=== PATIENT | male | born 1990 | race Caucasian/White ===

== ENCOUNTER 2019-04-08 11:17 | Emergency (ER) | payer SELFPAY ==
[~2019-04-08] VITALS: Ht 160 cm; Wt 82.0 kg
[2019-04-08 11:28] VITALS: BP 176/99
== END 2019-04-08 11:59 | disposition home or self-care (01) ==
LOC: ER 11:17
DX: S51.811A Laceration without foreign body of right forearm, initial encounter (principal); W25.XXXA Contact with sharp glass, initial encounter; Y93.89 Activity, other specified; Y92.89 Other specified places as the place of occurrence of the external cause
CPT/HCPCS: 99283

== ENCOUNTER 2019-04-18 11:33 | Emergency (ER) | payer OTHER ==
[~2019-04-18] VITALS: Ht 160 cm; Wt 82.0 kg
[2019-04-18 13:28] VITALS: BP 154/89
== END 2019-04-18 13:28 | disposition home or self-care (01) ==
LOC: ER 11:57
DX: M25.561 Pain in right knee (principal); W10.8XXA Fall (on) (from) other stairs and steps, initial encounter; Y93.89 Activity, other specified; Y92.018 Other place in single-family (private) house as the place of occurrence of the external cause
CPT/HCPCS: 73562; 99283

== ENCOUNTER 2021-06-17 18:11 | Inpatient (IN) | payer SELFPAY ==
[~2021-06-17] VITALS: Ht 160 cm; Wt 80.9 kg
[2021-06-17 12:20] VITALS: BP 124/72
[2021-06-17] MEDS ORDERED: MORPHINE SULFATE 4 MG/ML CPJ (NOT FOR IM USE) IV STA (18:53)
[2021-06-17] MEDS ORDERED: ONDANSETRON HCL 4MG/2ML INJ IV STA (18:53)
[2021-06-17] MEDS ORDERED: PIPERACILLIN/TAZ 3.375G PREMIX 50 ML IV ONE (19:00)
[2021-06-17] MEDS ORDERED: SODIUM CHLORIDE 0.9% 1000ML BAG (SEPSIS BOLUS) IV ONE (19:00)
[2021-06-17] MEDS ORDERED: VANCOMYCIN 1 G PREMIX 200 ML IV ONE (19:00)
[2021-06-17 19:18] LABS: BASOPHILS % 0.3 % (0.0-2.0); EOSINOPHILS % 0.4 % (0.0-5.0); HEMOGLOBIN. 15.3 g/dL (14.0-18.0); LYMPHOCYTES % 9.3 % (20.0-50.0); MEAN CORPUSCULAR HEMOGLOBIN 31.1 pg (28.0-32.0); MEAN CORPUSCULAR VOLUME 91.6 fL (80.0-94.0); PLATELET 376 x1000/uL (130-400); RED BLOOD CELL COUNT 4.92 mill/uL (4.7-6.1); RED CELL DISTRIBUTION WIDTH 13.1 % (11.6-14.6)
[2021-06-17 19:24] LABS: CHLORIDE 102 mEq/L (98-107)
[2021-06-17] MEDS ORDERED: ONDANSETRON HCL 4MG/2ML INJ IV PRN (23:45)
[2021-06-17] MEDS ORDERED: CLONIDINE 0.1MG TABLET PO PRN (23:45)
[2021-06-17] MEDS ORDERED: KETOROLAC 30MG/ML VIAL IV PRN (23:45)
[2021-06-17] MEDS ORDERED: VANCOMYCIN 1 G PREMIX 200 ML IV SCH (23:45)
[2021-06-17] MEDS ORDERED: ACETAMINOPHEN 325MG TABLET PO PRN ×2 (23:45)
[2021-06-17] MEDS ORDERED: ZOLPIDEM TARTRATE 5MG TABLET PO PRN (23:45)
[2021-06-17] MEDS ORDERED: DIPHENHYDRAMINE 50MG/ML VIAL IV PRN (23:45)
[2021-06-18 00:40] VITALS: BP 124/72
[2021-06-18] MEDS: SODIUM CHLORIDE 0.9% 1,000 ML IV SCH ×2 (00:53→11:07)
[2021-06-18 04:00] VITALS: BP 123/68
[2021-06-18] MEDS: VANCOMYCIN 1 G PREMIX 200 ML IV SCH ×2 (05:35→14:00)
[2021-06-18] MEDS ORDERED: OMEPRAZOLE 20MG CAPSULE EXTENDED RELEASE PO SCH (07:10)
[2021-06-18 08:00] VITALS: BP 122/82
[2021-06-18] MEDS ORDERED: ENOXAPARIN 40MG/0.4ML SYR SUBCUT SCH (09:00)
[2021-06-18 12:00] VITALS: BP 136/88
== END 2021-06-18 14:45 | disposition left against medical advice (07) | DRG 342 ==
LOC: ER 18:11 → MICUSO 20:16 → EDBEDREQTM 20:19 → EDBEDREQ 20:19 → EDBEDREQSVC 20:19 → 8WST 22:11
PROVIDERS: ADMIT Internal Medicine; ATTEND Internal Medicine
DX: S92.332A Displaced fracture of third metatarsal bone, left foot, initial encounter for closed fracture (principal); L03.116 Cellulitis of left lower limb; E87.6 Hypokalemia; S92.342A Displaced fracture of fourth metatarsal bone, left foot, initial encounter for closed fracture; F10.20 Alcohol dependence, uncomplicated; S92.325A Nondisplaced fracture of second metatarsal bone, left foot, initial encounter for closed fracture; Y90.9 Presence of alcohol in blood, level not specified; Z53.29 Procedure and treatment not carried out because of patient's decision for other reasons; Z59.0 Homelessness; Y93.55 Activity, bike riding; V87.8XXA Person injured in other specified noncollision transport accidents involving motor vehicle (traffic), initial encounter; Y92.89 Other specified places as the place of occurrence of the external cause; Y99.8 Other external cause status
CPT/HCPCS: 36415; 71045; 73590; 73630; 80053; 83605; 84145; 85025; 93971; 99285; J1650; J1885; J2270; J2405; J2543; J3370